=== PATIENT | female | born 1995 | race Caucasian/White ===

== ENCOUNTER 2021-12-09 05:36 | Inpatient (IN) ==
[2021-12-09] MEDS ORDERED: BUTORPHANOL 2 MG/ML VIAL IV PRN (05:53)
[2021-12-09] MEDS ORDERED: METHYLERGONOVINE 0.2 MG/1 ML AMP IM PRN (05:53)
[2021-12-09] MEDS ORDERED: TRANEXAMIC ACID 1,000 MG in SODIUM CHLORIDE 0.9% 100 ML IV PRN (05:53)
[2021-12-09] MEDS ORDERED: ONDANSETRON 4 MG/2 ML VIAL IV PRN ×2 (05:53→18:03)
[2021-12-09] MEDS ORDERED: LACTATED RINGERS 250 ML IV ONE (05:53)
[2021-12-09] MEDS ORDERED: CARBOPROST TROMETHAMINE 250 MCG/ML AMP IM PRN (05:53)
[2021-12-09] MEDS ORDERED: MEPERIDINE 50 MG/1 ML VIAL IV PRN (05:53)
[2021-12-09] MEDS ORDERED: LACTATED RINGERS 500 ML IV PRN (05:53)
[2021-12-09] MEDS ORDERED: miSOPROStoL 200 MCG TABLET RECTAL PRN (05:53)
[2021-12-09] MEDS ORDERED: LACTATED RINGERS 1,000 ML IV SCH (06:00)
[2021-12-09 06:20] LABS: Basophils % 0.3 % (0.0-0.8); Eosinophils # 0.1 10*3/uL (0.0-0.87); Eosinophils % 0.7 % (0.00-10.9); Hematocrit 38.6 VOL% (35.7-47.0); Hemoglobin 12.6 GM/DL (12.0-16.0); Immature Granulocytes % 0.7 %; Immature Granulocytes Absolute 0.08 #; Lymphocytes # 1.6 10*3/uL (1.4-4.0); Lymphocytes % 15.1 % (21.3-54.2); Mean Corpuscular HGB Conc 32.6 GM/DL (32-36); Mean Corpuscular Volume 92.1 FL (87-102); Mean Platelet Volume 12.9 FL (9.6-12.0); Monocytes # 0.9 10*3/uL (0.11-0.8); Monocytes % 8.2 % (1.7-12.7); Platelet Count 127 T/CUMM (130-400); Red Blood Count 4.19 MC/CUMM (3.8-5.5); Red Cell Distribution Width 14.3 % (9.3-17.3); White Blood Count 10.8 T/CUMM (4-12)
[2021-12-09] MEDS ORDERED: OXYTOCIN/LR 20 UNIT/1,000 ML BAG IV ONE ×2 (06:30→18:03)
[2021-12-09] MEDS ORDERED: OXYTOCIN/LR 20 UNIT/1,000 ML BAG IV SCH (06:30)
[2021-12-09] MEDS ORDERED: ePHEDrine 50 MG/ML VIAL IV PRN (08:16)
[2021-12-09] MEDS ORDERED: NALOXONE 0.4 MG/ML VIAL IV PRN (08:16)
[2021-12-09] MEDS ORDERED: LACTATED RINGERS 1,000 ML IV ONE (08:16)
[2021-12-09] MEDS ORDERED: hydrOXYzine HCL 25 MG/1 ML VIAL IM PRN (08:16)
[2021-12-09] MEDS ORDERED: diphenhydrAMINE 50 MG/1 ML VIAL IV PRN ×2 (08:16)
[2021-12-09] MEDS ORDERED: PROMETHAZINE 25 MG/1 ML VIAL IM ONE (08:16)
[2021-12-09] MEDS ORDERED: CITRIC ACID/SODIUM CITRATE 30 ML UDCUP PO ONE (08:16)
[2021-12-09] MEDS ORDERED: FAMOTIDINE 20 MG/2 ML VIAL IV ONE (08:16)
[2021-12-09] MEDS ORDERED: CITRIC ACID/SODIUM CITRATE 30 ML UDCUP ONE (08:19)
[2021-12-09] MEDS ORDERED: fentaNYL 2 MCG/ROPIV 0.2% EPID 100 ML EPIDURAL SCH (08:30)
[2021-12-09 11:09] LABS: Glucose,Urine (UA) Negative (Negative); Mucus,Urine Occasional /LPF (Occasional); Protein,Urine Negative (Negative); RBC,Urine 1 /HPF (0-4); Squamous Epithelial Cell,Urine Occasional /HPF (0-10); Urine Appearance Clear (Clear); Urine Color Yellow (Yellow); Urine Specific Gravity 1.025 (1.001-1.035)
[2021-12-09 11:10] LABS: Bilirubin,Urine Negative (Negative); Blood, Urine Negative (Negative); Ketones,Urine 80 mg/dL (Negative); Nitrite,Urine Negative (Negative); Urine Urobilinogen 0.2 eU/dL (<2.0)
[2021-12-09] MEDS ORDERED: CARBOPROST TROMETHAMINE 250 MCG/ML AMP IM ONE (15:03)
[2021-12-09] MEDS ORDERED: METHYLERGONOVINE 0.2 MG/1 ML AMP ONE (15:03)
[2021-12-09] MEDS ORDERED: TRANEXAMIC ACID 1,000 MG/10 ML VIAL ONE (15:03)
[2021-12-09] MEDS ORDERED: SODIUM CHLORIDE 0.9% 0 ML IV ONE (15:03)
[2021-12-09] MEDS ORDERED: miSOPROStoL 200 MCG TABLET ONE (15:03)
[2021-12-09 18:03] LABS: Cord Arterial Blood HCO3 17.7 MMOL/L
[2021-12-09] MEDS ORDERED: LANOLIN 50% CREAM 0.3 OZ TUBE TOP PRN (18:03)
[2021-12-09] MEDS ORDERED: BISACODYL 10 MG SUPP RECTAL PRN (18:03)
[2021-12-09] MEDS ORDERED: MEASLES/MUMPS/RUBELLA VACCINE 0.5 ML VIAL SUBCUT ONE (18:03)
[2021-12-09] MEDS ORDERED: HYDROCORTISONE 2.5% RECTAL CREAM 30 GM TUBE TOP PRN (18:03)
[2021-12-09] MEDS ORDERED: ACETAMINOPHEN 325 MG TABLET PO PRN (18:03)
[2021-12-09] MEDS ORDERED: BENZOCAINE 20%/MENTHOL 0.5% SPRAY 56 GM CAN TOP PRN (18:03)
[2021-12-09] MEDS ORDERED: oxyCODONE/ACETAMINOPHEN 5-325 MG TABLET PO PRN ×2 (18:03)
[2021-12-09] MEDS ORDERED: RHO(D) IMMUNE GLOBULIN 300 MCG SYRINGE IM ONE (18:03)
[2021-12-09] MEDS ORDERED: WITCH HAZEL PADS 100/JAR TOP PRN (18:03)
[2021-12-09] MEDS ORDERED: DIPH/TET/ACEL PERT BOOSTER VACCINE 0.5 ML VIAL IM ONE (18:03)
[2021-12-09 18:06] LABS: Cord Venous Blood HCO3 18.7 MMOL/L; Cord Venous Blood PCO2 41.4 MMHG; Cord Venous Blood PO2 26.8
[2021-12-09] MEDS: IBUPROFEN 800 MG TABLET PO PRN (19:56)
[2021-12-10 05:09] LABS: Basophils # 0.1 10*3/uL (0.0-0.2); Basophils % 0.3 % (0.0-0.8); Eosinophils % 0.3 % (0.00-10.9); Hematocrit 37.8 VOL% (35.7-47.0); Hemoglobin 12.4 GM/DL (12.0-16.0); Immature Granulocytes % 1.8 %; Immature Granulocytes Absolute 0.26 #; Lymphocytes # 1.7 10*3/uL (1.4-4.0); Lymphocytes % 11.5 % (21.3-54.2); Mean Corpuscular HGB Conc 32.8 GM/DL (32-36); Mean Corpuscular Volume 92.2 FL (87-102); Mean Platelet Volume 13.5 FL (9.6-12.0); Monocytes % 6.6 % (1.7-12.7); Neutrophils % 79.5 % (38.7-73.9); Platelet Count 117 T/CUMM (130-400); Red Cell Distribution Width 14.6 % (9.3-17.3); White Blood Count 14.3 T/CUMM (4-12)
[2021-12-10] MEDS: IBUPROFEN 800 MG TABLET PO PRN (05:57)
[2021-12-10] MEDS: DOCUSATE SODIUM 100 MG CAPSULE PO SCH ×2 (08:46→20:21)
[2021-12-10] MEDS: FERROUS SULFATE 325 MG TABLET PO SCH (08:47)
[2021-12-10] MEDS: MULTIVITAMIN (PRENATAL) TABLET PO SCH (08:47)
[2021-12-10] MEDS: ACETAMINOPHEN/CODEINE 300-30 MG TABLET PO PRN ×2 (11:50→16:18)
[2021-12-11] MEDS: ACETAMINOPHEN/CODEINE 300-30 MG TABLET PO PRN (01:26)
[2021-12-11] MEDS: FERROUS SULFATE 325 MG TABLET PO SCH (08:36)
[2021-12-11] MEDS: DOCUSATE SODIUM 100 MG CAPSULE PO SCH (08:36)
[2021-12-11] MEDS: MULTIVITAMIN (PRENATAL) TABLET PO SCH (08:36)
[2021-12-11 12:21] VITALS: BP 126/77
== END 2021-12-11 12:56 | disposition home or self-care (01) | DRG 807 ==
LOC: N.LD 05:36 → N.OB 21:00
PROVIDERS: ADMIT Obstetrics & Gynecology; ATTEND Obstetrics & Gynecology